=== PATIENT | female | born 1935 | race Caucasian/White ===

== ENCOUNTER → 2016-09-08 | Outpatient (CLI) | payer OTHER ==
[2016-09-08 11:12] LABS: HEMOGLOBIN 13.3 g/dL (12.0-16.0); MEAN CORPUSCULAR HEMOGLOBIN 31.8 PG (27-31); MEAN CORPUSCULAR HGB CONC 34.5 g/dL (33-37); RED BLOOD COUNT 4.18 10^6/uL (4.20-5.40)
[2016-09-08 11:26] LABS: BASOPHILS # (AUTO) 0.05 10*3/UL; BASOPHILS % (AUTO) 0.8 % (0-1); EOSINOPHILS # (AUTO) 0.19 10*3/UL; EOSINOPHILS % (AUTO) 3.1 % (0-8); HEMATOCRIT 38.6 % (37.0-47.0); LYMPHOCYTES # (AUTO) 1.82 10*3/uL; MEAN CORPUSCULAR VOLUME 92.3 FL (81-99); MEAN PLATELET VOLUME 9.2 FL (7.4-12.2); MONOCYTES # (AUTO) 0.67 10*3/UL (0.3-0.8); MONOCYTES % (AUTO) 10.8 % (5-15); NEUTROPHILS # (AUTO) 3.46 10*3/UL; NEUTROPHILS % (AUTO) 55.7 % (50-80)
[2016-09-08 11:28] LABS: PLATELET MORPHOLOGY COMMENT NORMAL MORPHOLOGY (NORM); RBC MORPHOLOGY COMMENT NORMAL MORPHOLOGY (NORM); WBC MORPHOLOGY COMMENT NORMAL MORPHOLOGY (NORM)
[2016-09-08 11:29] LABS: BUN/CREATININE RATIO 21.66 (6-20); CALCIUM 9.5 mg/dL (8.7-10.7); SERUM ALBUMIN 3.7 g/dL (3.5-4.8)
== END ==
LOC: LAB 10:24
PROVIDERS: ATTEND Nurse Practitioner Family
DX: Z79.1 Long term (current) use of non-steroidal anti-inflammatories (NSAID) (principal); Z79.899 Other long term (current) drug therapy
CPT/HCPCS: 36415; 80053; 85025

== ENCOUNTER 2018-06-03 07:53 | Inpatient (IN) ==
[2018-06-03] MEDS ORDERED: Sodium Chloride 0.9% 1,000 ML PRIMARY IV ONE (08:01)
--- NOTE | 2018-06-03 08:08 | EKG ---
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
[2018-06-03 08:18] LABS: BASOPHILS # (AUTO) 0.01 10*3/UL; BASOPHILS % (AUTO) 0.4 % (0-1); EOSINOPHILS # (AUTO) 0.06 10*3/UL; EOSINOPHILS % (AUTO) 2.1 % (0-8); Hematocrit [HCT] 34.1 % (37.0-47.0); Hemoglobin [HGB] 12.7 g/dL (12.0-16.0); LYMPHOCYTES # (AUTO) 0.86 10*3/uL; MEAN CORPUSCULAR HEMOGLOBIN 34.3 PG (27-31); MEAN CORPUSCULAR HGB CONC 37.2 g/dL (33-37); MEAN CORPUSCULAR VOLUME 92.2 FL (81-99); MEAN PLATELET VOLUME 9.1 FL (7.4-12.2); MONOCYTES # (AUTO) 0.04 10*3/UL (0.3-0.8); MONOCYTES % (AUTO) 1.4 % (5-15); NEUTROPHILS # (AUTO) 1.83 10*3/UL; NEUTROPHILS % (AUTO) 64.9 % (50-80)
[2018-06-03 08:18] LABS: VENOUS PH 7.52 (7.32-7.42)
[2018-06-03 08:23] LABS: PLATELET MORPHOLOGY COMMENT NORMAL MORPHOLOGY (NORM); RBC MORPHOLOGY COMMENT NORMAL MORPHOLOGY (NORM); WBC MORPHOLOGY COMMENT NORMAL MORPHOLOGY (NORM)
--- NOTE | 2018-06-03 08:25 | PDOC ---
General Adult HPI - General Chief Complaint: GI Bleed / Rectal Pain Stated Complaint: RECTAL BLEEDING Date Seen by Provider: 06/03/18 Time Seen by Provider: 08:05 Source: POSITIVE: Patient, Other (Family) Exam Limitations: POSITIVE: No limitations Nurse's Notes Reviewed & Considered: Yes - History of Present Illness Initial Comment: The patient is an 82-year-old female who is brought to the emergency department by her family with multiple complaints. The patient has not been feeling well for the past couple of weeks. She was initially diagnosed with a urinary tract infection and started on Macrobid. This medication apparently made her feel worse and she was switched to a different antibiotic which she is currently araceli ing. In addition for the past week or longer she has had sore throat associated with some congestion and some mild cough. She reports continued weakness and general malaise. Her family reports that she had bright red blood in her stool starting sometime last night. She does have a history of a small hemorrhoid according to the patient. She denies any current abdominal pain. She does not take any blood thinners other than a baby aspirin daily. She does report some mild headache currently. She denies chest pain or shortness of breath. Have you received a tetanus shot in the past 10 years?: Unknown - Patient Home Medications Home Medications: Home Medications Amlodipine Besylate 5 mg PO DAILY 06/03/18 Aspirin [Aspir 81] 81 mg PO DAILY 06/03/18 Benazepril HCl 40 mg PO DAILY 06/03/18 Cefuroxime Axetil [Ceftin] 250 mg PO BID 06/03/18 Gabapentin 600 mg PO BID 06/03/18 Hydrochlorothiazide [HydroDiuril Tab] 25 mg PO DAILY 06/03/18 Ibuprofen 600 mg PO PRN PRN 06/03/18 Labetalol HCl 200 mg PO BID 06/03/18 Loratadine 10 mg PO DAILY 06/03/18 Methotrexate Sodium [Methotrexate] 15 mg PO DAILY 06/03/18 - Patient Allergies Allergies/Adverse Reactions: Allergies Allergy/AdvReac Type Severity Reaction Status Date / Time No Known Allergies Allergy Verified 06/03/18 08:31 Past Medical History Significant Family History: Hypertension Past Medical History Reviewed: Reviewed - No Changes ROS - Limitations ROS Limitations: No Limitations Constitution: REPORTS: Chills. DENIES: Fever Cardiovascular: DENIES: Chest Pain, Heart Palpitations Respiratory: REPORTS: Cough Non Productive. DENIES: Shortness Of Breath Neurological: REPORTS: Headache, Dizziness. DENIES: Numbness, Weakness Gastrointestinal: REPORTS: Bloody Stools. DENIES: Abdominal Pain, Nausea, Vomitting Endocrine: REPORTS: Fatigue Musculoskeletal: REPORTS: Muscle Aches Genitourinary: REPORTS: Other (Recent urinary tract infection) Eyes: REPORTS: Denies Symptoms ENT: REPORTS: Nasal Drainage, Sore Throat Skin: DENIES: Rash General Adult Exam - General Appearance General Appearance: POSITIVE: Alert, Cooperative, No Acute Distress - HEENT HEENT: POSITIVE: Head Inspection Nml, Eyes Inspection Nml, Ears Inspection Nml, Nose Inspection Nml, Pharynx Inspect. Nml - Neck Neck: POSITIVE: Normal Inspection. NEGATIVE: Lymphadenopathy - Respiratory Respiratory: POSITIVE: No Respiratory Distress, Breath Sounds Normal - Cardiovascular Cardiovascular: POSITIVE: Regular Rate & Rhythm, No Murmur Peripheral Pulses: Dorsalis-pedis (R): 2+, Dorsalis-pedis (L): 2+ - Abdomen Abdomen: Soft: (All Quadrants), Denies Tenderness: (All Quadrants), No Distention: (All Quadrants) - Skin Skin: POSITIVE: Normal Color, No Rash - Extremities Extremity: Normal ROM: (All Extremities), Normal Inspection: (All Extremities) - Neurological / Psychological Neurological: POSITIVE: Oriented X3, mortgage banker Normal As Tested, Motor Normal, Sensation Normal, Other (No focal neurologic deficits) General Adult Progress - Results Reviewed by me Lab Results Reviewed by Me: Yes Lab Results:: Laboratory Results 06/03/18 06/03/18 06/03/18 08:05 08:05 08:05 WBC 2.82 L RBC 3.70 L Hgb 12.7 Hct 34.1 L MCV 92.2 MCH 34.3 H MCHC 37.2 H RDW Std Deviation 45.3 RDW Coeff of Nathalie 14.0 Plt Count 114 L MPV 9.1 Immature Gran % (Auto) 0.7 Neut % (Auto) 64.9 Lymph % (Auto) 30.5 [place] % (Auto) 1.4 L Eos % (Auto) 2.1 Baso % (Auto) 0.4 Immature Gran # (Auto) 0.02 Neut # (Auto) 1.83 Lymph # (Auto) 0.86 [place] # (Auto) 0.04 L Eos # (Auto) 0.06 Baso # (Auto) 0.01 WBC Morphology Comment Normal morphology Plt Morphology Comment Normal morphology RBC Morph Comment Normal morphology VBG pH VBG pCO2 VBG HCO3 VBG Base Excess Sodium 132 L Potassium 3.3 L Chloride 93 L Carbon Dioxide 28 Anion Gap 11 BUN 24 H Creatinine 0.6 BUN/Creatinine Ratio 40.00 H Glucose 86 Calculated Osmolality 276.0 Lactic Acid 1.6 Calcium 9.7 Magnesium 1.6 Total Bilirubin 0.7 AST 69 H ALT 44 Alkaline Phosphatase 113 Troponin I C-Reactive Protein 24.4 H Total Protein 6.6 Albumin 3.4 L Globulin 3.2 Albumin/Globulin Ratio 1.00 L 06/03/18 06/03/18 08:05 08:14 WBC RBC Hgb Hct MCV MCH MCHC RDW Std Deviation RDW Coeff of Nathalie Plt Count MPV Immature Gran % (Auto) Neut % (Auto) Lymph % (Auto) [place] % (Auto) Eos % (Auto) Baso % (Auto) Immature Gran # (Auto) Neut # (Auto) Lymph # (Auto) [place] # (Auto) Eos # (Auto) Baso # (Auto) WBC Morphology Comment Plt Morphology Comment RBC Morph Comment VBG pH 7.52 H VBG pCO2 34 L VBG HCO3 27 H VBG Base Excess 4 H Sodium Potassium Chloride Carbon Dioxide Anion Gap BUN Creatinine BUN/Creatinine Ratio Glucose Calculated Osmolality Lactic Acid Calcium Magnesium Total Bilirubin AST ALT Alkaline Phosphatase Troponin I < 0.012 C-Reactive Protein Total Protein Albumin Globulin Albumin/Globulin Ratio CBC and BMP: 06/03/18 08:05 06/03/18 08:05 - Patient's Progress MDM / ED Course: An IV was established, blood cultures and lactate were drawn with initial IV start. Initial venous blood gas reveals a pH is 7.5. She did receive a 1 L bolus of normal saline. Rectal exam was performed and revealed some clotted blood noted in her clothing as well as in the perirectal region, no active hemorrhaging. Her white count is low at 2 and her platelets are 114, hemoglobin is 12. Her sodium and potassium are somewhat low. CRP is elevated. Urinalysis and chest x-ray are pending. I did discuss the patient with Dr. Trinidad and he is agreed to admit the patient. Dr. Méndez is also aware of the patient from general surgery. Coags have been added to her blood work. These recommendations are been discussed with the patient and her family and they're in agreement with current plan. - Consult Counseled: POSITIVE: Patient, Family, RE: Lab Results, RE: DX Patient Care Time - Estimated PCT Patient Care Time (In Minutes): 30 Vital Signs - Recent Vital Signs Vital Signs: Vital Signs (Last 8 hours) Temp Pulse Pulse Resp BP Pulse Ox 06/03/18 08:05 80 06/03/18 07:53 99.9 F H 85 18 150/84 95 - VS Reviewed Vital Signs Reviewed: Yes Discharge Clinical Impression: Rectal bleeding, UTI (urinary tract infection), Upper respiratory infection Discharge Disposition: Admit to Inpatient Follow Up With: LELA TRIMBLE [Primary Care Provider] - Date Decision to Admit to Inpatient: 06/03/18 Time Decision to Admit to Inpatient: 09:00
[2018-06-03 08:33] LABS: BLOOD UREA NITROGEN 24 mg/dL (7-22); SERUM ALBUMIN 3.4 g/dL (3.5-4.8)
--- NOTE | 2018-06-03 09:07 | DI ---
AP CHEST X-RAY, 06/03/2018 8:46 AM : Clinical History: Cough. Hypoxia. Previous Exam: None at this facility. Comparison is made with a CT scan of the chest from 09/08/2010. Soft Tissues: No acute soft tissue abnormality. Bones: Normal. Heart: Cardiomegaly. There may be very early CHF. Lungs: No infiltrates. Effusion(s): None. 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 Mediastinum: Normal mediastinum. Nodules: No pulmonary nodules. Readin. Cardiomegaly with what probably is a very early CHF. 2. No acute infiltrate or effusion.
[2018-06-03] MEDS ORDERED: DOCUSATE 100 MG CAPSULE PO PRN (10:03)
[2018-06-03] MEDS ORDERED: LIDOCAINE W/ SODIUM BICARB 0.5 ML SYR SUBD PRN (10:03)
[2018-06-03] MEDS ORDERED: ONDANSETRON 4 MG/2 ML VIAL IVP PRN (10:03)
[2018-06-03] MEDS ORDERED: CALCIUM CARBONATE 500 MG (TUMS) CHEWABLE TABLET PO PRN (10:03)
[2018-06-03] MEDS ORDERED: Sodium Chloride 0.9% 1,000 ML PRIMARY IV SCH (10:15)
--- NOTE | 2018-06-03 10:31 | PDOC ---
HPI - History of Present Illness Date of Service: 06/03/18 Time of Service: 10:30 Chief Complaint: Sore throat for few days, weakness, rectal bleeding today History of Present Illness: This is an 82 years old female with medical history significant for history of rheumatoid arthritis, hypertension who is not being feeling well the last 2 week s. On the she was diagnosed with urinary tract infection at that time she had burning with micturition she was started on Macrobid took it for 5 days. She felt worse after starting antibiotics she started to feel dizzy, woozy in the head according to her and she developed a sore throat. On Tuesday she was switched to cefuroxime. She has some congestion and minimal cough. sHe continued to feel weak. Last night she had some bleeding per rectum not significant amount in the stool and also had it today and that's why she was brought to the hospital. There was no abdominal pain no nausea no vomiting. No shortness of breath. Evaluation in the ER revealed leukopenia, thrombocytopenia and hypokalemia and was admitted. Past Medical History Medical History: 1. History of for rheumatoid arthritis. 2. History of hypertension Surgical History: 1. History of cholecystectomy. 2. History of hysterectomy Family History: Reviewed an Not Pertinent Past Social History: Does not smoke, does not drink no drugs. Lives by herself. She is a walker at home. She's been using it for about 2 years. Tobacco Use: Never Smoker In the Past 12 Months, Have Used or Abuse Any of the Following Substance: None Alcohol Use: None Medication / Allergies Home Medications: Home Medications Medication Instructions Recorded Confirmed Type Amlodipine Besylate 5 mg PO DAILY 06/03/18 06/03/18 History Aspirin [Aspir 81] 81 mg PO DAILY 06/03/18 06/03/18 History Benazepril HCl 40 mg PO DAILY 06/03/18 06/03/18 History Cefuroxime Axetil [Ceftin] 250 mg PO BID 06/03/18 06/03/18 History Gabapentin 600 mg PO BID 06/03/18 06/03/18 History Hydrochlorothiazide [HydroDiuril 25 mg PO DAILY 06/03/18 06/03/18 History Tab] Ibuprofen 600 mg PO PRN PRN 06/03/18 06/03/18 History Labetalol HCl 200 mg PO BID 06/03/18 06/03/18 History Loratadine 10 mg PO DAILY 06/03/18 06/03/18 History Methotrexate Sodium [Methotrexate] 15 mg PO DAILY 06/03/18 06/03/18 History Allergies/Adverse Reactions: Allergies Allergy/AdvReac Type Severity Reaction Status Date / Time No Known Allergies Allergy Verified 06/03/18 08:31 Review of Systems - Review of Systems All Systems: Reviewed & No Additional Complaints Except as Stated Exam - Vitals Vital Signs: Vital Signs Temperature 98.9 F Temperature Source Temporal Artery Scan Pulse Rate [Pulse Oximeter 79 Right] Pulse Rate 83 Respiratory Rate 20 Blood Pressure [Left Arm] 149/80 Blood Pressure 131/66 Pulse Ox 90 Oxygen Delivery Method Room Air Height 4 ft 11 in Weight 130 lb - General General Appearance: No Acute Distress, Cooperative - Head Head Exam: Normal Inspection - Eye Eye Exam: POSITIVE: Normal Appearance - ENT Additonal ENT Exam Details: Ulceration noted in the tongue aphthous ulceration, also ulceration noted on the soft palate - Neck Neck Exam: Normal Inspection - Respiratory Respiratory Exam: POSITIVE: Clear to Auscultation - Bilaterally - Cardiovascular Cardiovascular Exam: POSITIVE: Irregular Rhythm - GI/Abdominal GI/Abdominal Exam: POSITIVE: Normal Bowel Sounds, Non Tender, Non Distended, Soft, No Organomegaly - Rectal Rectal Exam: POSITIVE: Deferred - External Exam: POSITIVE: Deferred - Extremities Additional Extremities Exam Details: Changes of rheumatoid arthritis noted - Neurological Neurological Exam: POSITIVE: Alert, Oriented x 3, CN II-XII Intact, No Facial Droop, Speech Intact / Clear - Psychiatric Psychiatric Exam: POSITIVE: Normal Affect - Integumentary Integumentary Exam: POSITIVE: Normal Color Results - Labs CBC and BMP: 06/03/18 14:00 06/03/18 08:05 - Imaging Status: Report Reviewed by Me (Chest X ray 1. Cardiomegaly with what probably is a very early CHF. 2. No acute infiltrate or effusion.) Assessment and Plan - Patient Problems (1) Stomatitis Current Visit: Yes Status: Acute Comment: I think probably this is secondary to methotrexate. We'll treat with the folic acid. We'll hold the methotrexate. We'll check for strep Code(s): K12.1 - Other forms of stomatitis (2) Rectal bleeding Current Visit: Yes Status: Acute Comment: We'll repeat her hemoglobin. Will consult surgery. Code(s): K62.5 - Hemorrhage of anus and rectum (3) Hypertension Current Visit: Yes Status: Acute Comment: We'll put her on her usual medication Code(s): I10 - Essential (primary) hypertension (4) UTI (urinary tract infection) Current Visit: Yes Status: Acute Comment: Will put her on Rocephin because of low blood count and recent UTI Code(s): N39.0 - Urinary tract infection, site not specified
[2018-06-03] MEDS ORDERED: FOLIC ACID 1 MG TABLET PO SCH (10:40)
[2018-06-03] MEDS: cefTRIAXone Inj 2 GM in Sodium Chloride 0.9% 100 ML IV SCH (11:07)
[2018-06-03] MEDS: MAG/AL/SIM/DPM/LID Mouthwash 237 ML KIT PO PRN ×2 (12:44→20:50)
[2018-06-03] MEDS: Potassium Chloride Tab 10 MEQ TAB PO SCH ×2 (12:44→17:19)
[2018-06-03] MEDS: ACETAMINOPHEN 325 MG TABLET PO PRN (13:56)
[2018-06-03 14:04] LABS: Hematocrit [HCT] 34.3 % (37.0-47.0); Hemoglobin [HGB] 12.5 g/dL (12.0-16.0)
[2018-06-03] MEDS: GABAPENTIN 300 MG CAPSULE PO SCH ×3 (20:49→21:40)
[2018-06-03] MEDS: LABETALOL 100 MG TABLET PO SCH (20:49)
[2018-06-03 21:41] LABS: BILIRUBIN,URINE NEGATIVE (NEG); CLARITY,URINE CLEAR (CLEAR); COLOR,URINE YELLOW (Y); GLUCOSE, URINE (UA) NEGATIVE (NEG); OCCULT BLOOD,URINE Trace-intact (NEG); PROTEIN,URINE NEGATIVE (NEG); UROBILINOGEN,URINE 0.2 EU/dL (0.2)
[2018-06-03 21:42] LABS: URINE SAMPLE TYPE VOIDED SPECIMEN
[2018-06-03 21:44] LABS: BACTERIA,URINE RARE; RBC,URINE 0-1 /hpf; SQUAMOUS EPITHELIAL CELL,UR RARE; WBC,URINE 0-1
[2018-06-04 04:18] LABS: BASOPHILS # (AUTO) 0.02 10*3/UL; BASOPHILS % (AUTO) 0.5 % (0-1); EOSINOPHILS # (AUTO) 0.07 10*3/UL; EOSINOPHILS % (AUTO) 1.7 % (0-8); Hematocrit [HCT] 31.2 % (37.0-47.0); Hemoglobin [HGB] 10.7 g/dL (12.0-16.0); LYMPHOCYTES # (AUTO) 1.04 10*3/uL; MEAN CORPUSCULAR HEMOGLOBIN 32.1 PG (27-31); MEAN CORPUSCULAR HGB CONC 34.3 g/dL (33-37); MEAN CORPUSCULAR VOLUME 93.7 FL (81-99); MEAN PLATELET VOLUME 8.8 FL (7.4-12.2); MONOCYTES # (AUTO) 0.07 10*3/UL (0.3-0.8); MONOCYTES % (AUTO) 1.7 % (5-15); NEUTROPHILS # (AUTO) 2.98 10*3/UL; NEUTROPHILS % (AUTO) 70.7 % (50-80); RED BLOOD COUNT 3.33 10^6/uL (4.20-5.40)
[2018-06-04 04:33] LABS: PLATELET MORPHOLOGY COMMENT NORMAL MORPHOLOGY (NORM); RBC MORPHOLOGY COMMENT NORMAL MORPHOLOGY (NORM); WBC MORPHOLOGY COMMENT NORMAL MORPHOLOGY (NORM)
[2018-06-04 04:35] LABS: BLOOD UREA NITROGEN 16 mg/dL (7-22)
[2018-06-04] MEDS: Potassium Chloride Tab 10 MEQ TAB PO SCH (06:49)
[2018-06-04] MEDS: ACETAMINOPHEN 325 MG TABLET PO PRN (06:49)
[2018-06-04] MEDS ORDERED: ACETAMINOPHEN 650 MG/20.3 ML CUP PO PRN (08:38)
[2018-06-04] MEDS ORDERED: MAGNESIUM 400 MG/5 ML - 30 ML (MILK OF MAGNESIA) PO PRN (08:52)
--- NOTE | 2018-06-04 08:53 | PDOC(PROG) ---
Date of Service: 06/04/18 Time of Service: 09:10 Interval History: Subjective Maybe a Better according to her. Still have sore throat and pain when she swallows. No rash. The nurses did notice that there is perianal excoriation and it seems that area was bleeding. Objective : Data - Labs CBC and BMP: 06/04/18 04:12 06/04/18 04:12 Objective : Exam - General General Appearance: No Acute Distress, Cooperative - Head Head Exam: Normal Inspection - Eye Eye Exam: Normal Appearance - ENT Additonal ENT Exam Details: Office ulceration noted the under the tongue and also ulceration noted of the palate. - Neck Neck Exam: Normal Inspection - Respiratory Respiratory Exam: Clear to Auscultation - Bilaterally - Cardiovascular Cardiovascular Exam: Irregular Rhythm - GI/Abdominal GI/Abdominal Exam: Normal Bowel Sounds, Non Tender, Non Distended, Soft - Rectal Additional Rectal Exam Details: A picture of the area showed excoriation in the perianal area - External Exam: Deferred - Extremities Additional Extremities Exam Details: Changes from rheumatoid arthritis noted - Neurological Neurological Exam: Alert, Oriented x 3, CN II-XII Intact - Psychiatric Psychiatric Exam: Normal Affect - Integumentary Integumentary Exam: Normal Color Additional Integumentary Exam Details: Apart from the excoriation in the perianal area there is no rash elsewhere there is no conjunctivitis. Assessment and Plan - Patient Problems (1) Stomatitis Current Visit: Yes Status: Acute Comment: I suspect this is methotrexate effect, I looked at the literature there are some reports of herpes infection in elderly very rare, I think will consider putting her on acyclovir 3 times a day if she can swallow it. Continue folic acid but will switch to IV as she had trouble swallowing the pill. Code(s): K12.1 - Other forms of stomatitis (2) Rectal bleeding Current Visit: Yes Status: Acute Comment: Now I am questioning whether this is truly rectal bleeding versus a bleeding from the excoriated skin. Local therapy will be applied to the skin and continue watching her hemoglobin. Code(s): K62.5 - Hemorrhage of anus and rectum (3) Hypertension Current Visit: Yes Status: Acute Comment: Continue labetalol I think we'll hold off on the rest of her medication. Code(s): I10 - Essential (primary) hypertension (4) UTI (urinary tract infection) Current Visit: Yes Status: Acute Comment: The UA seemed to be improved. The culture is negative I think will give another dose of IV and if the blood cultures still remain negative will stop The antibiotics. Code(s): N39.0 - Urinary tract infection, site not specified (5) Hypokalemia Current Visit: Yes Status: Acute Comment: Continue potassium replacement, she is unable to swallow well we'll add IV and will switch to liquid potassium. Code(s): E87.6 - Hypokalemia
[2018-06-04] MEDS ORDERED: AmLODIPine Tab 5 MG TABLET PO SCH (09:00)
[2018-06-04] MEDS ORDERED: BENAZEPRIL HCL 20 MG TABLET PO SCH (09:00)
[2018-06-04] MEDS: FOLIC ACID 5 MG/1 ML - 10 ML IVP SCH (10:41)
[2018-06-04] MEDS: Potassium Chloride 20mEq Packet PO SCH (10:41)
[2018-06-04] MEDS: PANTOPRAZOLE IV 40 MG VIAL IVP SCH (10:42)
[2018-06-04] MEDS: LABETALOL 100 MG TABLET PO SCH ×2 (10:42→20:56)
[2018-06-04] MEDS: ACYCLOVIR 400 MG TABLET PO SCH ×3 (10:42→20:56)
[2018-06-04] MEDS: GABAPENTIN 300 MG CAPSULE PO SCH ×2 (10:43→20:55)
[2018-06-04] MEDS: cefTRIAXone Inj 2 GM in Sodium Chloride 0.9% 100 ML IV SCH (13:14)
[2018-06-05 04:30] LABS: BASOPHILS # (AUTO) 0.03 10*3/UL; BASOPHILS % (AUTO) 0.6 % (0-1); EOSINOPHILS # (AUTO) 0.19 10*3/UL; EOSINOPHILS % (AUTO) 3.8 % (0-8); Hematocrit [HCT] 32.5 % (37.0-47.0); Hemoglobin [HGB] 11.1 g/dL (12.0-16.0); LYMPHOCYTES # (AUTO) 1.26 10*3/uL; MEAN CORPUSCULAR HEMOGLOBIN 32.6 PG (27-31); MEAN CORPUSCULAR HGB CONC 34.2 g/dL (33-37); MEAN CORPUSCULAR VOLUME 95.6 FL (81-99); MONOCYTES # (AUTO) 0.05 10*3/UL (0.3-0.8); NEUTROPHILS % (AUTO) 69.2 % (50-80)
[2018-06-05 04:35] LABS: BLOOD UREA NITROGEN 11 mg/dL (7-22); SERUM ALBUMIN 2.9 g/dL (3.5-4.8)
[2018-06-05 04:36] LABS: PLATELET MORPHOLOGY COMMENT NORMAL MORPHOLOGY (NORM); RBC MORPHOLOGY COMMENT NORMAL MORPHOLOGY (NORM); WBC MORPHOLOGY COMMENT NORMAL MORPHOLOGY (NORM)
[2018-06-05] MEDS: FOLIC ACID 5 MG/1 ML - 10 ML IVP SCH (09:38)
[2018-06-05] MEDS: Potassium Chloride 20mEq Packet PO SCH (09:52)
[2018-06-05] MEDS: PANTOPRAZOLE IV 40 MG VIAL IVP SCH (09:52)
[2018-06-05] MEDS: FOLIC ACID 1 MG TABLET PO SCH (09:53)
[2018-06-05] MEDS: ACYCLOVIR 400 MG TABLET PO SCH ×3 (09:53→20:49)
[2018-06-05] MEDS: GABAPENTIN 300 MG CAPSULE PO SCH ×2 (09:53→20:49)
[2018-06-05] MEDS: LABETALOL 100 MG TABLET PO SCH ×2 (09:53→20:49)
--- NOTE | 2018-06-05 13:34 | PDOC(PROG) ---
Date of Service: 06/05/18 Time of Service: 13:29 Interval History: Patient seen and evaluated earlier today. Daughter present in room. The patient has had dysphasia over the last 2 weeks. Difficulty swallowing started prior to presence of stomatitis. The patient denies any coughing or choking sensation when she eats however. Urinalysis here is not suggestive of urinary tract infection. Mental status has improved significantly off of Macrobid per the patient and daughter. I suspect the patient had skin breakdown as relates to excoriated dermatitis on Macrobid as well as confusion on this. It is listed as an allergy with her pharmacy now. No chest pain and no shortness of breath. Feels weak, has not had therapy. Has never had outbreaks of stomatitis on methotrexate in the past prior to Macr obid use. Objective : Data - Labs CBC and BMP: 06/05/18 04:11 06/05/18 04:11 Additional Lab Results: Laboratory Results 06/03/18 06/05/18 06/05/18 08:10 04:11 04:11 WBC 5.05 RBC 3.40 L Hgb 11.1 L Hct 32.5 L MCV 95.6 MCH 32.6 H MCHC 34.2 RDW Std Deviation 48.1 RDW Coeff of Nathalie 14.6 H Plt Count 64 L MPV 9.0 Immature Gran % (Auto) 0.4 Neut % (Auto) 69.2 Lymph % (Auto) 25.0 [place] % (Auto) 1.0 L Eos % (Auto) 3.8 Baso % (Auto) 0.6 Immature Gran # (Auto) 0.02 Neut # (Auto) 3.50 Lymph # (Auto) 1.26 [place] # (Auto) 0.05 L Eos # (Auto) 0.19 Baso # (Auto) 0.03 WBC Morphology Comment Normal morphology Plt Morphology Comment Normal morphology RBC Morph Comment Normal morphology Sodium 135 Potassium 3.7 L Chloride 106 Carbon Dioxide 24 Anion Gap 5 BUN 11 Creatinine 0.4 L Estimated GFR Surgical Attendant BUN/Creatinine Ratio 27.50 H Glucose 87 Calculated Osmolality 277.0 Calcium 8.3 L Total Bilirubin 0.6 AST 53 H ALT 48 Alkaline Phosphatase 84 Total Protein 5.6 L Albumin 2.9 L Globulin 2.7 Albumin/Globulin Ratio 1.00 L Vitamin B12 > 1000 H Serum Folate 10.6 Objective : Exam - General General Appearance: No Acute Distress, Cooperative Additional General Exam Details: Vital Signs - Last Taken Temperature 98.7 F 06/05/18 11:04 Pulse Rate 76 06/05/18 11:04 Respiratory Rate 18 06/05/18 11:04 Blood Pressure 155/82 06/05/18 11:04 Pulse Ox 95 06/05/18 11:04 - Eye Eye Exam: No Scleral Icterus - ENT ENT Exam: Mucous Membranes Moist Additonal ENT Exam Details: Several vesicles underneath the tongue that appear 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 - Extremities Extremities Exam: No Clubbing Present, No Edema Present, No Cyanosis Present - Neurological Neurological Exam: Alert, Oriented x 3, No Facial Droop, Speech Intact / Clear, Moves All Extremities Equally - Psychiatric Psychiatric Exam: Normal Affect, Normal Mood Assessment and Plan - Patient Problems (1) Rheumatoid arthritis Current Visit: Yes Status: Acute Code(s): M06.9 - Rheumatoid arthritis, unspecified Qualifiers: Rheumatoid arthritis location: multiple sites Rheumatoid factor presence: with rheumatoid factor Qualified Code(s): M05.79 - Rheumatoid arthritis with rheumatoid factor of multiple sites without organ or systems involvement (2) Stomatitis Current Visit: Yes Status: Acute Code(s): K12.1 - Other forms of stomatitis (3) Hypertension Current Visit: Yes Status: Acute Code(s): I10 - Essential (primary) hypertension Qualifiers: Hypertension type: essential hypertension Qualified Code(s): I10 - Essential (primary) hypertension (4) Hypokalemia Current Visit: Yes Status: Acute Code(s): E87.6 - Hypokalemia (5) Rectal bleeding Current Visit: Yes Status: Suspected Code(s): K62.5 - Hemorrhage of anus and rectum (6) UTI (urinary tract infection) Current Visit: Yes Status: Ruled-out Code(s): N39.0 - Urinary tract infection, site not specified Qualifiers: Urinary tract infection type: acute cystitis Hematuria presence: without hematuria Qualified Code(s): N30.00 - Acute cystitis without hematuria - Assessment / Plan Additional Assessment/Plan Details: Overall, I think the urinary tract infection was treated and appears resolved. Urinalysis here not suggestive of urinary tract infection. I checked culture results from 05/25/2018, and it was sensitive to Macrobid so I think treated appropriately at this time in terms of length of time of antibiotics. I advised the patient and her daughter that the patient should avoid Macrobid entirely given her age. It is contraindicated in patients over 65. Terms of the swallowing, we'll get a barium esophagram tomorrow. There are no signs or symptoms of choking or coughing with eating, so we will see what that shows first before seeing where we proceed with that. The patient refuses to have a colonoscopy to evaluate any rectal bleeding. Her hemoglobins do not suggest any active bleed. In fact it's improved today. However she is agreeable to doing a CT scan of the abdomen and pelvis so we'll proceed with that today. I think this would be an okay plan as I do not think that there is actual rectal bleeding. I suspect this was from excoriation from the skin. PT and OT. Continue antiviral therapy for stomatitis. The difficult choice will be to determine whether methotrexate should be resumed or not. The patient would like to avoid traveling for rheumatology evaluation and opinion on this. She would like to continue methotrexate if possible. All that being said, she like to establish with primary care physician here at the medical office building in [place], and I evaluate her options further regarding methotrexate therapy and rheumatology evaluation. Patient and daughter are in agreement with the plan above.
--- NOTE | 2018-06-05 16:46 | PTI REPORT ---
Thank you for the referral of Paty Redding. She was seen on 06/05/18 for an inpatient evaluation secondary to weakness. SUBJECTIVE: The patient is an 82-year-old female. The patient was referred today by Dr. Trinidad secondary to weakness. She also has a UTI. She states she has cold sores on her mouth and on her other end as well. The patient lives alone at home. She states her son lives right behind her, but she has been independent with all of her ADLs through history up until this recent hospitalization. She has no steps or stairs to get in or out of her home. She does use a walker most of the time. The patient has no history of falling at home. The patient is very worried about getting home before the next snow storm as she has chickens and other pets to care for. PAST MEDICAL HISTORY: Past medical history can be found in the patient's medical record. OBJECTIVE FINDINGS: General observations: The patient was alert and oriented x3. Pain: The patient complained of not being in any pain except for in her mouth and her other end. 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 Range of motion: The patient demonstrated functional range of motion of her bilateral upper extremities. She had -1-2 degree knee flexion and hip flexion contracture in her right leg. Strength: The patient demonstrated 2-/5 for lower extremity strength; 3-/5 for hip strength and core strength. Bed mobility: The patient was able to transfer from supine to sit independently. Transfers: The patient was able to transfer from sit to stand with stand by assist of one. Ambulation: The patient does have her own walker with wheels and is very comfortable with its usage and was able to ambulate about 80 feet before fatigue. ASSESSMENT: The patient is a LOW to MODERATE fall risk. She mostly does well. Short-Term Goals: To be met by discharge from inpatient: Patient will be able to transfer from bed to stand independently. Patient will be able to ambulate 300 feet with least restrictive assistive device. Patient will increase lower extremity strength to 4/5. Long-Term Goals: To be met following discharge from inpatient: Patient will return home, remaining independent in all of her activities. TREATMENT PLAN: Patient will be seen B.I.D during the week and one time per day over the weekend as an inpatient for strengthening, transfers, ambulation, and balance. INITIAL TREATMENT: Treatment today consisted of the initial evaluation activities only. ALVARADO
--- NOTE | 2018-06-05 18:05 | DI ---
CT ABDOMEN SCAN WITH IV CONTRAST, 06/05/2018 2:00 PM : Clinical History: Rectal bleeding. Previous Exam: 09/06/2005. IV Contrast: 60 mL of Isovue 300. Oral Contrast: Volumen: CT oral enterography contrast. Rectal Contrast: No rectal contrast ordered. Lungs: No infiltrate or effusion. There is a stellate roughly 15-20 mm lesion in the medial segment o f the right middle lobe that was not present on a CT scan of the chest from 09/08/2010. Heart: Small pericardial effusion, smaller than on the prior exam from 2005. Calcifications in the mi ddle third of the LAD and the first diagonal branch in the proximal portion of the left circumflex an d right coronary arteries. Liver: Normal. Gallbladder: Status post cholecystectomy. Common bile duct measures 9 mm. Adrenal Glands: Normal. Spleen: Normal. Pancreas: Normal. Kidneys: Normal size, shape, position and contour. No hydronephrosis or hydroureter. There is right p elviectasis without caliectasis and no hydroureter. 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 No renal or ureteral calculi. Masses: None. Lymph Nodes: Normal. Ascites: No ascites. Free Air: None. 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 Osteoporosis. READIN. Normal CT abdomen scan. 2. 15-20 mm stellate lesion in the medial segment of the right middle lobe. Followup with a CT scan of the chest preferably with IV contrast is recommended. CT PELVIS SCAN WITH IV CONTRAST, 06/05/2018 2:00 PM: Clinical History: See above. Previous Exam: 09/06/2005. Contrast: Same bolus used for CT scans of the abdomen. Masses: No masses or enhancing lesions. Ascites: None. Free Air: None. Lymph Nodes: No adenopathy. Appendix: Not visualized. There is "malrotation" of the cecum and the cecum lies in the midline sligh tly superior to the umbilicus. There is no inflammatory mass in the cecum and there is no inflammator y change in the right lower quadrant. The cecum measures 9 cm in diameter. Small Bowel: Normal small bowel, terminal ileum, and ileocecal valve. Normal enhancement present. Colon: Normal. The cecum measures 9 cm in diameter. All russo enhance uniformly. Aorta: The aorta and iliac arteries are normal. There is a normal appearance of the celiac axis and S MA and EDY. Contrast is visualized throughout all of these vessels. Uterus: Status post hysterectomy. Ovaries: Status post bilateral oophorectomy. Bladder: Normal. Hernias: None. Bony Pelvis: Normal sacrum, pelvic bones, and hips. Osteoporosis. READIN. Normal CT scan of the pelvis with IV contrast. No evidence of ischemic bowel or of diverticulitis . No obvious annular lesion is seen in the colon. 2. Malrotation of the cecum. The cecum lies in the midline superior to the umbilicus and has a calib er of 9 cm.
[2018-06-06 06:43] VITALS: O2SAT 95
[2018-06-06] MEDS: FOLIC ACID 1 MG TABLET PO SCH (09:27)
[2018-06-06] MEDS: ACYCLOVIR 400 MG TABLET PO SCH ×2 (09:27→15:39)
[2018-06-06] MEDS: LABETALOL 100 MG TABLET PO SCH (09:27)
[2018-06-06] MEDS: PANTOPRAZOLE IV 40 MG VIAL IVP SCH (09:28)
[2018-06-06] MEDS: Potassium Chloride 20mEq Packet PO SCH (09:49)
[2018-06-06] MEDS: GABAPENTIN 300 MG CAPSULE PO SCH (09:49)
--- NOTE | 2018-06-06 10:29 | OTI REPORT ---
Thank you for the referral of Paty Redding. She was seen on 06/05/18 for an occupational therapy inpatient evaluation secondary to weakness. SUBJECTIVE: The patient is an 82-year-old female who came to the hospital secondary to a UTI and later issues related to a virus affecting her mucous membranes and causing pain. The patient currently reports that she is in no pain other than her mouth when she takes a drink of liquids. The patient reports that she lives here in [place] by herself in a single level home. She has no stairs to get into her house. Her bathroom set up includes a walk in shower with a 4" lip. She does not use a shower chair; however, she does have grab bars within the shower. The patient does have a toilet riser with bilateral handles. The patient reports that she sometimes uses a cane to ambulate within her home as well as furniture surfing. The patient reports that she takes care of her chickens and to get to her chicken pen she walks with a four wheeled walker with a chair and she has a walker within the barn as well. The patient reports that she walks down to the barn twice a day to take care of the chickens. At prior level of function the patient reports that she was living independently at home with some outside assistance provided by her granddaughter. The patient reports that she completed all ADLs including grooming, lower and upper extremity dressing, toileting tasks, bathing tasks, and eating independently with no difficulty. She did complete iADLs to include pet care independently. The patient does require assistance for some deeper cleaning tasks to include vacuuming. She states her granddaughter performs vacuuming. Her granddaughter also does grocery shopping for her and assists her with opening containers due to the patient's limited oracle forms developer strength. The patient reports that her son lives right behind her. She reports she has had no falls. The patient does have right shoulder pain when she moves her arm secondary to an older shoulder injury. The patient does report that she has difficulty with visual tasks and uses a magnifier to read her pill bottles due to macular degeneration. The patient is not currently driving and has not driven for the past four years secondary to her visual issues. PAST MEDICAL HISTORY: Past medical history can be found in the patient's medical record. OBJECTIVE FINDINGS: General observations: The patient was oriented to person, place, date, and reason for hospitalization. Bed mobility: The patient demonstrated the ability to move from supine in bed to sitting edge of bed independently. The patient was able to sit upright edge of bed with fair balance dynamically and good static balance in a seated position. Transfers: The patient completed a functional sit to stand transfer from edge of bed with contact guard assist and ambulated x15 feet to the restroom with contact guard assist. Activities of daily living: The patient demonstrated the ability to complete a toileting task to include undergarment management, transfer with a toilet riser with bilateral handles, and hygiene tasks with contact guard assist for safety. The patient tolerated standing at the sink x2 minutes to complete washing her hands. The patient then ambulated back to bed. Range of motion: The patient's upper extremity range of motion is 50% of full for shoulder flexion and abduction on the right side and 75% of full for shoulder flexion and abduction on the left side. Upper extremity range of motion for the elbow, hand, and wrist is within functional limits. 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 Strength: Upper extremity strength on the left for shoulder flexion/abduction was 3-/5. Right shoulder strength was not assessed secondary to right shoulder injury and pain. Bilateral elbow strength is 4/5 for flexion/extension. Wrist strength in all planes is 3+/5. Spinning Frame Changer strength bilaterally is 3+/5. ASSESSMENT: Rehab potential is fair to good. The patient's discharge plan is to return to home to prior level of function. Problem List: Decreased upper extremity strength Decreased activity tolerance/standing balance Decreased ability to perform lower and upper extremity dressing Short-Term Goals: To be met by discharge from inpatient: Patient will demonstrate the ability to complete lower extremity dressing tasks independently to include set up before discharge to home. Patient will demonstrate the ability to stand x10 minutes at the sink to complete standing grooming tasks before discharge to home. Patient will increase bilateral upper extremity strength by one manual muscle grade before discharge to home. Long-Term Goals: To be met following discharge from inpatient: Patient will discharge to home in a safe manner with no difficulty. TREATMENT PLAN: Patient will be seen B.I.D during the week and one time per day over the weekend as an inpatient to address the above goals and objectives. INITIAL TREATMENT: Treatment today consisted of the initial evaluation only. ALVARADO
[2018-06-06 11:11] VITALS: BP 124/69; RESP 18; TEMP 97.5
--- NOTE | 2018-06-06 11:22 | PT.PROG ---
Progress Note Progress Note: S. Patient stated she is feeling good and agreed to go to the therapy gym. O. patient ambulated 175 feet to the therapy gym where she used the nu-step x 5 minutes then performed seated long arc quads, marches, heel toe rasies, ball squeezes and clam shells all x 10 bilaterally with red theraband, patient then ambulated 175 feet back to her room where she was left with alarm and call light. A. Patient tolerated therapy well, she was able to perform all exercises with no increase in pain or problems. Patient would continue to benefit from skilled therapy to increase strength, endurance and safety at this time. P. Continue POC.
--- NOTE | 2018-06-06 12:05 | OT.PROG ---
Progress Note Progress Note: S: pt stated she just barely got done with breakfast. she said she does not want to do to much and make her arthritis hurt more. O: pt was seen in her room and completed LE dressing INd and UE donning of house coat Ind. She completed transfer downstairs. She completed UE exercises with YTB to increase strength. She did return to her room after exercises and was accompanied by family. A: pt did pace herself throughout exercises as she had already had a busy morning. Overall she did participate well and would continue to benefit from therapy to improve her activity tolerance. P: Continue per POC.
--- NOTE | 2018-06-06 14:16 | DI ---
CT CHEST SCAN WITH IV CONTRAST, 06/06/2018 7:58 AM : Clinical History: Abnormal CT scan of the abdomen revealed a spiculated lesion in the right middle lo be. Previous Exam: 09/08/2010. Technique: Scans from base of neck to lung bases with IV contrast. Non-MIPS and MIPS sagittal/coronal images generated. IV Contrast: 50 mL of Isovue 300. Base of Neck: Normal. Nodes: Normal axillary, supraclavicular, mediastinal, and hilar lymph nodes. Heart: Small to moderate pericardial effusion, larger than on the previous exam. Scattered calcificat ions are present in the proximal half of the LAD and branches of the ramus intermedians as well as th e left circumflex artery. Aorta: Ectatic thoracic aorta with AP and transverse dimensions of 38 mm. No dissection. Pulmonary Arteries: Normal. Study was not performed for evaluation of pulmonary emboli or infarcts. N o pulmonary hypertension. Lungs: No infiltrates. The stellate density seen on the recent CT scan of the abdomen is visualized i n the medial segment of the right middle lobe. It has primarily a linear configuration along the more lateral aspect of the lesion in the more medial portion has more of a nodular configuration. On the previous study, there was no nodular component. These changes are actually in the most medial aspect of the minor fissure. The nodular component has an average measurement of 7 mm. Effusion(s): Very small bilateral pleural effusions. Nodules: No additional nodules noted. Bony Structures: Normal visualized portions of ribs, sternum, scapulae, clavicles, and shoulders. Nor mal visualized portions of thoracic spine. Osteoporosis. Limited Upper Abdomen: Normal adrenal glands, spleen, and visualized portions of the liver and pancre as. READIN. The abnormality noted on the recent CT scan of the abdomen is contiguous with the medial margin o f the minor fissure. The lateral portion of this density in the minor fissure is linear or platelike in the medial margin is nodular. The estimated size of the nodular component is 7 mm. This is new sin ce the previous CT scan from 09/08/2010. A followup CT scan of the chest is recommended without IV con trast in 6 months. 2. Small moderate pericardial effusion, and this has increased in size since 2010.
--- NOTE | 2018-06-06 15:48 | DCSUMMARY ---
Hospitalization Summary Admit Date: 06/03/2018 Discharge Date: 06/06/18 Primary Diagnosis:: urinary tract infection, resolved Hospital Course: This very pleasant 82-year-old female who has rheumatoid arthritis, has been on methotrexate for 14 years. She developed an outpatient urinary tract infection, and reactive poorly to Macrobid. She developed perianal skin excoriations and breakdown, exfoliative dermatitis, and also developed stomatitis probably related to her methotrexate. I think the exfoliative dermatitis was related to Macrobid. Patient was admitted, Macrobid was discontinued, cefuroxime was continued and urine study showed no evidence of further urinary tract infection. The patient also developed what was thought to have rectal bleeding. Overall, it was probably bled from the skin excoriation. The hemoglobin improved during the hospital stay, and a CT scan was done which did not reveal any abdominal mass. The patient is not willing to undergo colonoscopy. Incidentally, we found pulmonary nodule and have arranged for the patient have follow-up for nodule evaluation with shock absorption floor layer/oncologist, Dr. Pereira. Dr. Villavicencio will be anxiously awaiting his opinion regarding recommendations on that nodule management. We appreciate his efforts to help this patient. The patient stomatitis improved. She was placed on antivirals which were stopped at the time of discharge. She has had some trouble swallowing pills so we did an esophagram and found that she had reflux esophagitis. I reviewed that study with radiology, and we will place the patient on a proton pump inhibitor for the next 2 months. She was warned of "red flag" symptoms as to when to pursue an EGD which she is not interested in pursuing right now. Today, no completes of chest pain, shortness breath, nausea or vomiting. The patient would really like to go home. Assessment and Plan: 1. As per discharge assessments noted 2. Disposition: Patient is discharged home 3. Condition on discharge, stable and improved. 4. Diet: regular diet 5. Activities: resume normal activities, she is not interested in outpatient physical therapy 6. Follow-Up: 1. Dr. Villavicencio in approximate 7 days 7. Medications at the Time of Discharge: Home Medications Medication Instructions Recorded Confirmed Type Amlodipine Besylate 5 mg PO DAILY 06/03/18 06/03/18 History Aspirin [Aspir 81] 81 mg PO DAILY 06/03/18 06/03/18 History Benazepril HCl 40 mg PO DAILY 06/03/18 06/03/18 History Gabapentin 600 mg PO BID 06/03/18 06/03/18 History Hydrochlorothiazide [HydroDiuril 25 mg PO DAILY 06/03/18 06/03/18 History Tab] Ibuprofen 600 mg PO PRN PRN 06/03/18 06/03/18 History Labetalol HCl 200 mg PO BID 06/03/18 06/03/18 History Loratadine 10 mg PO DAILY 06/03/18 06/03/18 History Methotrexate Sodium [Methotrexate] 15 mg PO DAILY 06/03/18 06/03/18 History Folic Acid 1 mg PO DAILY #30 tab 06/06/18 Rx Lansoprazole Solutab Tab 30 mg PO BID #90 tab. 06/06/18 Rx [Prevacid Solutab Tab] 8. Time, care, counseling and coordination of care for this discharge is greater than 30 minutes. Exam - Vitals Vital Signs: Vital Signs Temperature 97.5 F Temperature Source Temporal Artery Scan Pulse Rate [Pulse Oximeter 77 Right] Pulse Rate 73 Respiratory Rate 18 Blood Pressure [Right Arm] 136/71 Blood Pressure [Left Arm] 124/69 Blood Pressure 131/66 Pulse Ox 95 Oxygen Flow Rate 1 Oxygen Delivery Method Room Air Height 4 ft 11 in Weight 129 lb 6.4 oz - General General Appearance: No Acute Distress, Cooperative - Head Head Exam: Normal Inspection, Normocephalic, Atraumatic - Eye Eye Exam: POSITIVE: No Scleral Icterus - ENT ENT Exam: POSITIVE: Mucous Membranes Moist - Neck Neck Exam: JVP is not Raised - Respiratory Respiratory Exam: POSITIVE: Clear to Auscultation - Bilaterally, Breathing Non Labored - Cardiovascular Cardiovascular Exam: POSITIVE: RRR, No Murmur, No Clicks, No Gallops, No Rubs, No JVD Additional Cardiovascular Details: No friction rubs - GI/Abdominal GI/Abdominal Exam: POSITIVE: Normal Bowel Sounds, Non Tender, Non Distended, Soft - Extremities Extremities Exam: POSITIVE: No Clubbing Present, No Edema Present, No Cyanosis Present - Neurological Neurological Exam: POSITIVE: Alert, Oriented x 3, No Facial Droop, Speech Intact / Clear, Moves All Extremities Equally - Psychiatric Psychiatric Exam: POSITIVE: Normal Affect, Normal Mood Data Peritnent Studies: 06/03/18 06/03/18 06/03/18 08:05 08:05 08:10 WBC Hgb Hct Plt Count VBG pH VBG pCO2 VBG HCO3 VBG Base Excess Sodium Potassium Chloride Carbon Dioxide Anion Gap BUN Creatinine Estimated GFR BUN/Creatinine Ratio Glucose Calculated Osmolality Calcium Total Bilirubin AST ALT Alkaline Phosphatase C-Reactive Protein 24.4 H Total Protein 6.6 Albumin 3.4 L Globulin 3.2 Albumin/Globulin Ratio 1.00 L Vitamin B12 > 1000 H Serum Folate 10.6 TSH 1.31 Ur Culture Indicated? Group A Strep Screen 06/03/18 06/03/18 06/03/18 08:14 10:19 21:36 WBC Hgb Hct Plt Count VBG pH 7.52 H VBG pCO2 34 L VBG HCO3 27 H VBG Base Excess 4 H Sodium Potassium Chloride Carbon Dioxide Anion Gap BUN Creatinine Estimated GFR BUN/Creatinine Ratio Glucose Calculated Osmolality Calcium Total Bilirubin AST ALT Alkaline Phosphatase C-Reactive Protein Total Protein Albumin Globulin Albumin/Globulin Ratio Vitamin B12 Serum Folate TSH Ur Culture Indicated? Culture not set Group A Strep Screen Negative 06/05/18 06/05/18 04:11 04:11 WBC 5.05 Hgb 11.1 L Hct 32.5 L Plt Count 64 L VBG pH VBG pCO2 VBG HCO3 VBG Base Excess Sodium 135 Potassium 3.7 L Chloride 106 Carbon Dioxide 24 Anion Gap 5 BUN 11 Creatinine 0.4 L Estimated GFR [place] BUN/Creatinine Ratio 27.50 H Glucose 87 Calculated Osmolality 277.0 Calcium 8.3 L Total Bilirubin 0.6 AST 53 H ALT 48 Alkaline Phosphatase 84 C-Reactive Protein Total Protein Albumin Globulin Albumin/Globulin Ratio Vitamin B12 Serum Folate TSH Ur Culture Indicated? Group A Strep Screen Procedures: [address] [facility] [place] [address] PH: DD: [phone] FAX: [phone] ~DIAGNOSTIC IMAGING REPORT~ Patient: ALYSHA RAUSCH : 1935 Sex: F Age: 82 Exam Name: CT Chest W Contrast Exam Date: 06/06/18 Report # : [id number] CPT Code: 75823 EMR/MR #: [id number] Ordering: KESHIA NINO Admiting: BILL ERICKSON MD. Primary: LELA TRIMBLE MD Attending: BILL ERICKSON MD. Signed CT CHEST SCAN WITH IV CONTRAST, 06/06/2018 7:58 AM : Clinical History: Abnormal CT scan of the abdomen revealed a spiculated lesion in the right middle lobe. Previous Exam: 09/08/2010. Technique: Scans from base of neck to lung bases with IV contrast. Non-MIPS and MIPS sagittal/coronal images generated. IV Contrast: 50 mL of Isovue 300. Base of Neck: Normal. Nodes: Normal axillary, supraclavicular, mediastinal, and hilar lymph nodes. Heart: Small to moderate pericardial effusion, larger than on the previous exam. Scattered calcifications are present in the proximal half of the LAD and branches of the ramus intermedians as well as the left circumflex artery. Aorta: Ectatic thoracic aorta with AP and transverse dimensions of 38 mm. No dissection. Pulmonary Arteries: Normal. Study was not performed for evaluation of pulmonary emboli or infarcts. No pulmonary hypertension. Lungs: No infiltrates. The stellate density seen on the recent CT scan of the abdomen is visualized in the medial segment of the right middle lobe. It has primarily a linear configuration along the more lateral aspect of the lesion in the more medial portion has more of a nodular configuration. On the previous study, there was no nodular component. These changes are actually in the most medial aspect of the minor fissure. The nodular component has an average measurement of 7 mm. Effusion(s): Very small bilateral pleural effusions. Nodules: No additional nodules noted. Bony Structures: Normal visualized portions of ribs, sternum, scapulae, clavicles, and shoulders. Normal visualized portions of thoracic spine. Osteoporosis. Limited Upper Abdomen: Normal adrenal glands, spleen, and visualized portions of the liver and pancreas. READIN. The abnormality noted on the recent CT scan of the abdomen is contiguous with the medial margin of the minor fissure. The lateral portion of this density in the minor fissure is linear or platelike in the medial margin is nodular. The estimated size of the nodular component is 7 mm. This is new since the previous CT scan from 09/08/2010. A followup CT scan of the chest is recommended without IV contrast in 6 months. 2. Small moderate pericardial effusion, and this has increased in size since 2010. Dictated By: 06/06/18 0949 YANA PEACOCK MD. Signed By: 06/06/18 1414 YANA PEACOCK MD. [address] [facility] [place] [address] PH: DD: [phone] FAX: [phone] ~DIAGNOSTIC IMAGING REPORT~ Patient: ALYSHA RAUSCH : 1935 Sex: F Age: 82 Exam Name: CT Abdomen/Pelvis W Contrast Exam Date: 06/05/18 Report # : [id number] CPT Code: 85319 EMR/MR #: [id number] Ordering: KESHIA NINO Admiting: BILL ERICKSON MD. Primary: LELA TRIMBLE MD Attending: BILL ERICKSON MD. Signed CT ABDOMEN SCAN WITH IV CONTRAST, 06/05/2018 2:00 PM : Clinical History: Rectal bleeding. Previous Exam: 09/06/2005. IV Contrast: 60 mL of Isovue 300. Oral Contrast: Volumen: CT oral enterography contrast. Rectal Contrast: No rectal contrast ordered. Lungs: No infiltrate or effusion. There is a stellate roughly 15-20 mm lesion in the medial segment of the right middle lobe that was not present on a CT scan of the chest from 09/08/2010. Heart: Small pericardial effusion, smaller than on the prior exam from 2005. Calcifications in the middle third of the LAD and the first diagonal branch in the proximal portion of the left circumflex and right coronary arteries. Liver: Normal. Gallbladder: Status post cholecystectomy. Common bile duct measures 9 mm. Adrenal Glands: Normal. Spleen: Normal. Pancreas: Normal. Kidneys: Normal size, shape, position and contour. No hydronephrosis or hydroureter. There is right pelviectasis without caliectasis and no hydroureter. 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 No renal or ureteral calculi. Masses: None. Lymph Nodes: Normal. Ascites: No ascites. Free Air: None. 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 Osteoporosis. READIN. Normal CT abdomen scan. 2. 15-20 mm stellate lesion in the medial segment of the right middle lobe. Followup with a CT scan of the chest preferably with IV contrast is recommended. CT PELVIS SCAN WITH IV CONTRAST, 06/05/2018 2:00 PM: Clinical History: See above. Previous Exam: 09/06/2005. Contrast: Same bolus used for CT scans of the abdomen. Masses: No masses or enhancing lesions. Ascites: None. Free Air: None. Lymph Nodes: No adenopathy. Appendix: Not visualized. There is "malrotation" of the cecum and the cecum lies in the midline slightly superior to the umbilicus. There is no inflammatory mass in the cecum and there is no inflammatory change in the right lower quadrant. The cecum measures 9 cm in diameter. Small Bowel: Normal small bowel, terminal ileum, and ileocecal valve. Normal enhancement present. Colon: Normal. The cecum measures 9 cm in diameter. All russo enhance uniformly. Aorta: The aorta and iliac arteries are normal. There is a normal appearance of the celiac axis and SMA and EDY. Contrast is visualized throughout all of these vessels. Uterus: Status post hysterectomy. Ovaries: Status post bilateral oophorectomy. Bladder: Normal. Hernias: None. Bony Pelvis: Normal sacrum, pelvic bones, and hips. Osteoporosis. READIN. Normal CT scan of the pelvis with IV contrast. No evidence of ischemic bowel or of diverticulitis. No obvious annular lesion is seen in the colon. 2. Malrotation of the cecum. The cecum lies in the midline superior to the umbilicus and has a caliber of 9 cm. Dictated By: 06/05/18 1746 YANA PEACOCK MD. Signed By: 06/05/18 1805 YANA PEACOCK MD. Patient Problems - Patient Problem List (1) Rheumatoid arthritis Current Visit: Yes Status: Acute Code(s): M06.9 - Rheumatoid arthritis, unspecified Qualifiers: Rheumatoid arthritis location: multiple sites Rheumatoid factor presence: with rheumatoid factor Qualified Code(s): M05.79 - Rheumatoid arthritis with rheumatoid factor of multiple sites without organ or systems involvement Category: Medical (2) Stomatitis Current Visit: Yes Status: Acute Code(s): K12.1 - Other forms of stomatitis Category: Medical (3) Hypertension Current Visit: Yes Status: Acute Code(s): I10 - Essential (primary) hypertension Qualifiers: Hypertension type: essential hypertension Qualified Code(s): I10 - Essential (primary) hypertension Category: Medical (4) Hypokalemia Current Visit: Yes Status: Acute Code(s): E87.6 - Hypokalemia Category: Medical (5) Rectal bleeding Current Visit: Yes Status: Suspected Code(s): K62.5 - Hemorrhage of anus and rectum Category: Medical (6) UTI (urinary tract infection) Current Visit: Yes Status: Resolved Code(s): N39.0 - Urinary tract infection, site not specified Qualifiers: Urinary tract infection type: acute cystitis Hematuria presence: without hematuria Qualified Code(s): N30.00 - Acute cystitis without hematuria Category: Medical (7) Thrombocytopenia Current Visit: Yes Status: Acute Comment: She scores one point on 14 days for heparin-induced thrombocytopenia, probability of heparin-induced thrombocytopenia less than 5%. Code(s): D69.6 - Thrombocytopenia, unspecified Category: Medical
--- NOTE | 2018-06-06 20:46 | DI ---
ESOPHAGRAM, 06/06/2018 7:00 AM : Clinical History: Dysphagia. Rheumatoid arthritis. Previous Exam: None at this facility. Time Out: "Time out" session was performed to verify the patient's name and date of prior to pe rforming this procedure. Deglutition: Deglutition is normal and the esophagus strips well. Esophagitis: There is a small nodular pattern from the lower cervical esophagus to the GE junction co nsistent with esophagitis. Stricture: No strictures. Ulcerations: No esophageal ulcerations. Hiatal Hernia: Small hiatal hernia. Reflux: There is spontaneous reflux of barium to the cervical thoracic junction. Barium Tablet Challenge: The patient was not given a barium tablet to swallow. Distal Antrum and Duodenum: Spot films of the distal antrum and duodenum are normal. Limited views of the stomach are also normal. READIN. Reflux esophagitis involving the entire esophagus. Small hiatal hernia. There are no strictures o r ulcerations. 2. No aspiration was noted during the study. 3. The limited views of the stomach, antrum, and duodenum are normal.
== END 2018-06-06 15:59 | disposition home or self-care (01) | DRG 378 ==
LOC: ER 07:53 → MED/SURG 08:58
PROVIDERS: ADMIT Internal Medicine; ATTEND Internal Medicine